=== PATIENT | male | born 1980 | race Caucasian/White ===

== ENCOUNTER → 2017-05-19 | Day surgery (SDC) | payer OTHER ==
[~2017-05-19] MED LIST: Midazolam 2 MG/2 ML VIAL ONE; Propofol 10 mg/ml Inj (20 ML) ONE
[2017-05-19 10:20] VITALS: BMI 29.2
[2017-05-19 16:24] VITALS: TEMP 97.9
[2017-05-19 16:26] VITALS: RESP 14
[2017-05-19 17:18] VITALS: BP 114/70; PULSE 88; O2SAT 97
== END | disposition home or self-care (01) ==
LOC: C.ENDO 09:59
PROVIDERS: ATTEND Internal Medicine Gastroenterology
DX: K29.50 Unspecified chronic gastritis without bleeding (principal); B96.81 Helicobacter pylori [H. pylori] as the cause of diseases classified elsewhere
CPT/HCPCS: 43239; 88305; 88342; J2250; J2704; J7040